=== PATIENT | male | born 1970 | race Caucasian/White ===

== ENCOUNTER 2018-08-18 08:01 | Outpatient (CLI) | payer BC ==
--- NOTE | 2018-08-18 09:00 | ULT ---
COMPLETE ABDOMINAL ULTRASOUND: HISTORY: Follow up splenomegaly and right renal cyst. COMPARISON: 08/01/2015 FINDINGS: Liver echogenicity is within normal limits. No evidence of gallstones, wall thickening, edema, or pe richolecystic fluid. The common bile duct is within normal limits. The visualized pancreas, IVC, an d aorta are unremarkable. The spleen measures approximately 14.8 cm, evidence for splenomegaly, show ing little change from prior study. Small, 0.8 x 1.4 cm right upper pole renal cyst. No renal hydro nephrosis. No abscess or abnormal fluid collection. IMPRESSION: Overall stable splenomegaly and right renal cyst. POS: [facility]
== END 2018-08-18 08:02 | disposition home or self-care (01) ==
LOC: SCSULT 08:01
PROVIDERS: ATTEND Family Medicine
DX: R16.1 Splenomegaly, not elsewhere classified (principal); N28.1 Cyst of kidney, acquired
CPT/HCPCS: 76700